=== PATIENT | female | born 1985 | race Caucasian/White ===

== ENCOUNTER 2022-01-20 01:07 | Emergency (ER) | payer MEDICAID ==
[~2022-01-20] VITALS: Ht 157.5 cm; Wt 113.4 kg
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
[2022-01-20] MEDS ORDERED: ONDANSETRON ODT 4 MG TAB.RAPDIS ONE (01:28)
[2022-01-20] MEDS ORDERED: HYDROMORPHONE 1 MG/1 ML DISP.SYRIN ONE (01:29)
[2022-01-20] MEDS ORDERED: HYDROMORPHONE 1 MG/1 ML DISP.SYRIN IM ONE (01:30)
[2022-01-20] MEDS ORDERED: ONDANSETRON ODT 4 MG TAB.RAPDIS SL ONE (01:30)
--- NOTE | 2022-01-20 01:38 | NUR ---
Pt taken to CAT scan.
--- NOTE | 2022-01-20 01:49 | NUR ---
pt returned from cat scan.
[2022-01-20] MEDS ORDERED: HYDR-4209 PO (02:18)
--- NOTE | 2022-01-20 02:32 | NUR ---
Patient discharged to home in stable condition. Written and verbal after care instructions given. Patient verbalizes understanding of instructions. Stressed follow up or return to ER for worsening s/s.
[2022-01-20 02:33] VITALS: BP 130/86
== END 2022-01-20 02:33 | disposition home or self-care (01) ==
LOC: ER 01:30
DX: S16.1XXA Strain of muscle, fascia and tendon at neck level, initial encounter (principal); V49.60XA Unspecified car occupant injured in collision with unspecified motor vehicles in traffic accident, initial encounter; Y92.410 Unspecified street and highway as the place of occurrence of the external cause; G44.209 Tension-type headache, unspecified, not intractable; J45.909 Unspecified asthma, uncomplicated
CPT/HCPCS: 70450; 72125; 96372; 99285; J1170; A4663; Q0162

== ENCOUNTER 2022-02-06 12:05 | Emergency (ER) | payer MEDICAID ==
[~2022-02-06] VITALS: Ht 157.5 cm; Wt 113.4 kg
[~2022-02-06 12:05] MED LIST: HYDR-4209 PO
--- NOTE | 2022-02-06 12:20 | NUR ---
Patient ambulatory, alert and orientedx4 complaints of nurning,sharp pain urination for 2 weeks. Patient stated she is currently taking AZO but doesnt help. Vitals stable. Denies nausea/vomiting,abdominal pain.
[2022-02-06 12:58] LABS: *BILIRUBIN,URIN NEGATIVE (NEGATIVE); *BLOOD, URINE NEGATIVE (NEGATIVE); *CLARITY,URINE CLEAR (CLEAR); *COLOR,URINE YELLOW (YELLOW); *KETONES,URINE NEGATIVE (NEGATIVE); *UROBILINOGEN,URINE 0.2 E.U./dl (NORMAL); LEUKOCYTE ESTERASE ,URINE NEGATIVE (NEGATIVE); NITRITE, URINE POSITIVE (NEGATIVE); PH,URINE 6.5 (5.0-8.0); UGLUCOSE NEGATIVE (NEGATIVE)
[2022-02-06 12:59] LABS: *URINE HCG, QUAL NEG (NEGATIVE)
[2022-02-06] MEDS ORDERED: CIPR-262 PO (13:50)
[2022-02-06 15:37] LABS: BACTERIA,URINE FEW /HPF (NONE SEEN); SQUAMOUS EPITHELIAL CELL,UR FEW /HPF (NONE SEEN)
== END 2022-02-06 13:54 | disposition home or self-care (01) ==
LOC: ER 12:05
DX: N39.0 Urinary tract infection, site not specified (principal); J45.909 Unspecified asthma, uncomplicated; Z88.0 Allergy status to penicillin; Z87.440 Personal history of urinary (tract) infections
CPT/HCPCS: 84703; 87077; 87086; A4663

== ENCOUNTER 2023-02-17 15:22 | Emergency (ER) | payer MEDICAID ==
[~2023-02-17] VITALS: Ht 157.5 cm; Wt 113.4 kg
[~2023-02-17 15:22] MED LIST changes: +CIPR-262 PO
[2023-02-17 16:16] LABS: *BILIRUBIN,URIN NEGATIVE (NEGATIVE); *CLARITY,URINE CLEAR (CLEAR); *COLOR,URINE YELLOW (YELLOW); *KETONES,URINE TRACE (NEGATIVE); *UROBILINOGEN,URINE 0.2 E.U./dl (NORMAL); LEUKOCYTE ESTERASE ,URINE NEGATIVE (NEGATIVE); NITRITE, URINE NEGATIVE (NEGATIVE); UGLUCOSE NEGATIVE (NEGATIVE)
[2023-02-17 16:24] LABS: *BLOOD, URINE TRACE (NEGATIVE)
[2023-02-17 16:55] LABS: BACTERIA,URINE NONE SEEN /HPF (NONE SEEN); CALCIUM CARBONATE CRYSTALS,UR NONE SEEN /HPF (NONE SEEN); CALCIUM OXALATE CRYSTALS,UR NONE SEEN /HPF (NONE SEEN); CALCIUM PHOSPHATE CRYSTALS,UR NONE SEEN /HPF (NONE SEEN); COARSE GRANULAR CASTS,URINE NONE SEEN /LPF; CYSTINE CRYSTALS,URINE NONE SEEN /HPF (NONE SEEN); FATTY CASTS,URINE NONE SEEN /LPF (NONE SEEN); RBC,URINE 0-3 /HPF (0-3); RED BLOOD CELL CASTS,URINE NONE SEEN /LPF (NONE SEEN); SQUAMOUS EPITHELIAL CELL,UR FEW /HPF (NONE SEEN); TRICHOMONAS,URINE NONE SEEN /HPF (NONE SEEN); TRIPLE PHOSPHATE CRYSTAL,UR NONE SEEN /HPF (NONE SEEN); TYROSINE CRYSTAL,URINE NONE SEEN /HPF (NONE SEEN); URIC ACID CRYSTALS,URINE NONE SEEN /HPF (NONE SEEN); URINE AMORPHOUS PHOSPHATES NONE SEEN /HPF; URINE AMORPHOUS URATE NONE SEEN /HPF; WAXY CASTS,URINE NONE SEEN /LPF (NONE SEEN); WBC,URINE 0-3 /HPF (0-3); YEAST,URINE NONE SEEN /HPF (NONE SEEN)
[2023-02-17 16:56] LABS: MUCUS,URINE FEW /LPF (0-FEW); SPERM,URINE NONE SEEN /HPF (NONE SEEN)
[2023-02-17 17:03] LABS: *URINE HCG, QUAL NEGATIVE (NEGATIVE)
--- NOTE | 2023-02-17 17:33 | NUR ---
PT IS IN ROOM #3. DR DIAZ EVALUATED THE PT.
[2023-02-17] MEDS ORDERED: CEFTRIAXONE 500 MG VIAL IM ONE (18:00)
[2023-02-17] MEDS ORDERED: CEFTRIAXONE 500 MG VIAL ONE (18:16)
[2023-02-17] MEDS ORDERED: LIDOCAINE HCL 2% 20 ML VIAL ONE (18:16)
[2023-02-17] MEDS ORDERED: DOXY100C5 PO (18:50)
[2023-02-17 19:43] VITALS: BP 148/77
== END 2023-02-17 19:20 | disposition home or self-care (01) ==
LOC: ER 15:22
DX: N34.2 Other urethritis (principal); J45.909 Unspecified asthma, uncomplicated; Z88.1 Allergy status to other antibiotic agents; Z79.2 Long term (current) use of antibiotics; Z79.899 Other long term (current) drug therapy
CPT/HCPCS: 84703; A4663; J0696; J3490